=== PATIENT | female | born 1985 | race Two or more races ===

== ENCOUNTER 2021-06-15 23:45 | Emergency (ER) | payer MEDICAID ==
[~2021-06-15] VITALS: Ht 157.5 cm; Wt 68.0 kg
[2021-06-15 23:45] VITALS: BP 123/83
[2021-06-16] MEDS ORDERED: FLUORESCEIN SOD OPTH TEST STRIP LEFTEYE ONE (02:45)
[2021-06-16] MEDS ORDERED: TETRACAINE HCL 0.5% OPTH(EYE) SOLN 4ML LEFTEYE ONE (02:45)
== END 2021-06-16 05:22 | disposition left against medical advice (07) ==
LOC: ER 23:45
DX: H57.12 Ocular pain, left eye (principal); Z53.21 Procedure and treatment not carried out due to patient leaving prior to being seen by health care provider

== ENCOUNTER 2021-08-25 03:01 | Emergency (ER) | payer MEDICAID ==
[~2021-08-25] VITALS: Ht 157.5 cm; Wt 56.7 kg
[2021-08-25] MEDS ORDERED: ALBUTEROL SULF 2.5 MG/0.5ML(0.5%) NEB SOLN NEB ONE (03:15)
[2021-08-25] MEDS ORDERED: IPRATROPIUM BROM 0.5 MG/2.5ML INH SOL NEB ONE (03:15)
[2021-08-25 03:34] VITALS: BP 141/96
== END 2021-08-25 06:59 | disposition left against medical advice (07) ==
LOC: ER 03:01
DX: S31.811A Laceration without foreign body of right buttock, initial encounter (principal); Z53.21 Procedure and treatment not carried out due to patient leaving prior to being seen by health care provider; W25.XXXA Contact with sharp glass, initial encounter; Y93.89 Activity, other specified; Y92.89 Other specified places as the place of occurrence of the external cause; Y99.8 Other external cause status